=== PATIENT | male | born 1975 | race Caucasian/White ===

== ENCOUNTER → 2024-07-14 | Day surgery (SDC) | payer OTHER ==
[~2024-07-14] MED LIST: DEXAMETHASONE SOD PHOS 10 MG/1 ML VIAL ONE; DEXAMETHASONE SOD PHOS INJ 4 MG/ML SDV ONE; FENTANYL CITRATE/PF 100MCG/2 ML INJ ONE; LIDOCAINE HCL 2% LOCAL INJ 5 ML SDV VIAL INJ ONE; LIPITOR10 MG PO; MIDAZOLAM HCL 2 MG/2 ML VIAL ONE; NEXIUM40 MG PO; OFLOXACIN 0.3% (OTIC SOL) 5 ML BTL ONE; ONDANSETRON HCL INJ 2MG/ML 2ML 2 MG/ML VIAL ONE; PROPOFOL IV EMULSION 10 MG/ML 20 ML VIAL ONE; SEVOFLURANE INHAL SOLN 250 ML PEN BTL ONE
[2024-07-14] MEDS: LACTATED RINGER'S 1,000 ML ONE (06:34)
[2024-07-14 08:15] VITALS: TEMP 98.7
[2024-07-14 09:05] VITALS: BP 128/75; PULSE 73; RESP 16; O2SAT 95
== END | disposition home or self-care (01) ==
LOC: OR 05:54
PROVIDERS: ATTEND Otolaryngology Otolaryngology/Facial Plastic Surgery
DX: S04.62XA Injury of acoustic nerve, left side, initial encounter (principal); H93.12 Tinnitus, left ear; H90.3 Sensorineural hearing loss, bilateral; K21.9 Gastro-esophageal reflux disease without esophagitis; E66.9 Obesity, unspecified; E78.5 Hyperlipidemia, unspecified; W42.9XXA Exposure to other noise, initial encounter; Y99.8 Other external cause status; Z88.8 Allergy status to other drugs, medicaments and biological substances; Z79.899 Other long term (current) drug therapy
CPT/HCPCS: 69399; 69436; 93005; J1100 ×2; J2003; J2250; J2405; J2704; J3010; J7121